=== PATIENT | female | born 1945 | race Caucasian/White ===

== ENCOUNTER → 2017-05-04 | Outpatient (CLI) | payer MEDICARE ==
[2017-05-04 18:37] LABS: Basophils % (A) 0 %; CH 28.5; CHCM 32.7; Eosinophils % (A) 0 %; HCT 43.3 % (34.0-46.0); HGB 14.7 gm/dL (11.4-16.0); Luc # (Auto) 0.13; Luc % (Auto) 3; Lymphocytes # (A) 1.1 k/uL (1.0-4.8); Lymphocytes % (A) 23 %; MCH 29.7 pg (25.0-35.0); MCHC 33.9 g/dL (31.0-37.0); MCV 87.6 fL (80.0-100.0); Mean Platelet Volume 8.9; Monocytes # (A) 0.3 k/uL (0-1.0); Monocytes % (A) 6 %; Neutrophils # (A) 3.1 k/uL (1.3-7.7); Neutrophils % (A) 67 %; RBC 4.94 m/uL (3.80-5.40); RDW 13.9 % (11.5-15.5); WBC 4.7 k/uL (3.8-10.6); WBC (Perox) 4.97
[2017-05-04 18:47] LABS: ALT 42 U/L (9-52); AST 36 U/L (14-36); Alkaline Phosphatase 63 U/L (38-126); Anion Gap 13 mmol/L; Blood Urea Nitrogen 20 mg/dL (7-17); Calcium 9.9 mg/dL (8.4-10.2); Carbon Dioxide 25 mmol/L (22-30); Chloride 103 mmol/L (98-107); Cholesterol 166 mg/dL (<200); Glucose 86 mg/dL (74-99); HDL Cholesterol 73 mg/dL (40-60); Non-African American GFR(MDRD) >60 (>60 ml/min/1.73 sqM); Potassium 3.9 mmol/L (3.5-5.1); Sodium 141 mmol/L (137-145); Total Bilirubin 0.7 mg/dL (0.2-1.3); Triglycerides 63 mg/dL (<150)
== END | disposition home or self-care (01) ==
LOC: MMGSC 12:05
PROVIDERS: ATTEND Family Medicine
DX: I10 Essential (primary) hypertension (principal); E78.5 Hyperlipidemia, unspecified
CPT/HCPCS: 36415; 80053; 80061; 84439; 84443; 85025; 87086

== ENCOUNTER → 2017-06-20 | Outpatient (CLI) | payer MEDICARE ==
--- NOTE | 2017-06-21 11:47 | MM ---
Reason for exam: screening (asymptomatic). Last mammogram was performed 1 year ago. History: Patient is postmenopausal and has history of breast cancer at age 42. Family history of breast cancer in 2 daughters. Mastectomy of the right breast, 1986. Reconstruction of the left breast. Physical Findings: A clinical breast exam by your physician is recommended on an annual basis and results should be correlated with mammographic findings. MG 3D Scr Mauricio Unilateral W/Cad Bilateral CC and MLO view(s) were taken. Prior study comparison: June 17, 2016, left breast mammogram, performed at [facility]. June 17, 2015, bilateral mammogram, performed at [facility]. There are scattered fibroglandular densities. There is chronic nodularity in the left breast. No significant changes when compared with prior studies. ASSESSMENT: Benign, BI-RAD 2 RECOMMENDATION: Routine screening mammogram of the left breast in 1 year.
== END | disposition home or self-care (01) ==
LOC: RADMAMWWP 10:35
PROVIDERS: ATTEND Family Medicine
DX: Z12.31 Encounter for screening mammogram for malignant neoplasm of breast (principal); Z90.11 Acquired absence of right breast and nipple; Z85.3 Personal history of malignant neoplasm of breast
CPT/HCPCS: 77063; G0202

== ENCOUNTER → 2018-06-21 | Outpatient (CLI) | payer MEDICARE ==
--- NOTE | 2018-06-22 14:15 | MM ---
Reason for exam: screening (asymptomatic). Last mammogram was performed 1 year ago. History: Patient is postmenopausal and has history of breast cancer at age 42. Family history of breast cancer in 2 daughters. Mastectomy of the right breast, 1986. Reconstruction of the left breast. Physical Findings: A clinical breast exam by your physician is recommended on an annual basis and results should be correlated with mammographic findings. MG 3D Scr Mauricio Unilateral W/Cad Bilateral CC and MLO view(s) were taken. Prior study comparison: June 20, 2017, bilateral MG 3d scr mauricio unilateral w/cad. June 17, 2016, left breast mammogram, performed at [facility]. There are scattered fibroglandular densities. No significant changes when compared with prior studies. ASSESSMENT: Benign, BI-RAD 2 RECOMMENDATION: Routine screening mammogram of the left breast in 1 year.
== END | disposition home or self-care (01) ==
LOC: RADMAMWWP 10:26
PROVIDERS: ATTEND Family Medicine
DX: Z12.31 Encounter for screening mammogram for malignant neoplasm of breast (principal); Z90.11 Acquired absence of right breast and nipple; Z98.82 Breast implant status
CPT/HCPCS: 77067

== ENCOUNTER → 2019-06-22 | Outpatient (CLI) | payer MEDICARE ==
--- NOTE | 2019-06-25 14:59 | MM ---
Reason for exam: screening (asymptomatic). Last mammogram was performed 1 year ago. History: Patient is postmenopausal and has history of breast cancer at age 42. Family history of breast cancer in 2 daughters. Mastectomy of the right breast, 1986. Reconstruction of the left breast. Physical Findings: A clinical breast exam by your physician is recommended on an annual basis and results should be correlated with mammographic findings. MG 3D Scr Mauricio Unilateral W/Cad Bilateral CC and MLO view(s) were taken. Prior study comparison: June 21, 2018, bilateral MG 3d scr mauricio unilateral w/cad. June 20, 2017, bilateral MG 3d scr mauricio unilateral w/cad. There are scattered fibroglandular densities. No significant changes when compared with prior studies. ASSESSMENT: Benign, BI-RAD 2 RECOMMENDATION: Routine screening mammogram of the left breast in 1 year.
== END | disposition home or self-care (01) ==
LOC: RADMAMWWP 11:25
PROVIDERS: ATTEND Family Medicine
DX: Z12.31 Encounter for screening mammogram for malignant neoplasm of breast (principal); Z85.3 Personal history of malignant neoplasm of breast; Z90.11 Acquired absence of right breast and nipple
CPT/HCPCS: 77067

== ENCOUNTER → 2019-07-24 | Outpatient (CLI) | payer MEDICARE ==
[2019-07-24 12:18] LABS: Potassium 3.8 mmol/L (3.5-5.1)
[2019-07-24 12:27] LABS: Basophils % (A) 1 %; Eosinophils % (A) 1 %; HCT 42.1 % (34.0-46.0); HGB 13.8 gm/dL (11.4-16.0); Lymphocytes # (A) 1.1 k/uL (1.0-4.8); Lymphocytes % (A) 23 %; MCH 28.5 pg (25.0-35.0); MCHC 32.9 g/dL (31.0-37.0); MCV 86.6 fL (80.0-100.0); Monocytes # (A) 0.3 k/uL (0-1.0); Monocytes % (A) 7 %; Neutrophils # (A) 3.2 k/uL (1.3-7.7); Neutrophils % (A) 66 %; Platelet Count 202 k/uL (150-450); Prothrombin Time 10.4 sec (9.0-12.0); RBC 4.86 m/uL (3.80-5.40); RDW 15.5 % (11.5-15.5); WBC 4.9 k/uL (3.8-10.6)
== END | disposition home or self-care (01) ==
LOC: LABPAT 11:18
PROVIDERS: ATTEND Orthopaedic Surgery
DX: Z01.812 Encounter for preprocedural laboratory examination (principal); Z01.818 Encounter for other preprocedural examination; M17.12 Unilateral primary osteoarthritis, left knee; Z79.01 Long term (current) use of anticoagulants
CPT/HCPCS: 36415; 80051; 85025; 85610; 87070; 93005

== ENCOUNTER 2019-08-07 10:01 | Day surgery (SDC) | payer MEDICARE ==
[2019-08-01 14:43] VITALS: BMI 33.8
--- NOTE | 2019-08-06 14:13 | HP ---
HISTORY AND PHYSICAL CHIEF COMPLAINT: Left knee pain. HISTORY OF PRESENT ILLNESS: The patient is a 74-year-old retired female who presents with progressive left knee pain after a previous injury while doing yoga. She notes persistent pain, swelling, and giving way. She has tried medications and an injection with only partial temporary relief. She notes the pain severely limits her normal function and activities. PAST MEDICAL HISTORY: Significant for breast cancer, hypertension, hypercholesterolemia. PAST SURGICAL HISTORY: Significant for mastectomy, hysterectomy, cardiac catheterization, and rectocele repair. CURRENT MEDICATIONS: Losartan, Ditropan, turmeric. She denies drug allergies. FAMILY HISTORY: Significant for cancer. SOCIAL HISTORY: Significant for occasional alcohol use. REVIEW OF SYSTEMS: A 16-point review of systems otherwise reviewed and is noncontributory. PHYSICAL EXAMINATION: On examination, the patient is approximately 5 foot, 285 pounds of endomorphic habitus. HEENT: Exam is nonfocal. NECK: Supple, she has painless passive motion of her left hip. Straight leg raise is negative. Active motion left knee -12 to 95 degrees of flexion. She has a large effusion. She is tender about the medial joint line. Collaterals are stable, Riya is negative, Sandra's elicits medial pain. She has genu varum alignment. Her distal neurovascular appears intact in the left lower extremity. Previous x-rays of the left knee obtained in the office show severe medial compartment osteoarthrosis. IMPRESSION: Left knee severe medial compartment osteoarthrosis. RECOMMENDATIONS: I talked to the patient at length regarding her condition along with treatment options. At this point, she is quite limited because of pain related to her osteoarthrosis despite a trial of conservative measures. After thorough discussion, she opts to proceed with surgery. We will plan to proceed with a left total knee arthroplasty. Risks and benefits were discussed at length in layman's terms. We will institute DVT prophylaxis postoperatively. The patient underwent preoperative medical evaluation by Dr. Boswell. MMAMMONL / MILADYN: [id number] /
[~2019-08-07 10:01] MED LIST: ACETAMINOPHEN TAB 500 MG TAB PO ONE; DEXAMETHASONE SOD PHOSPHATE 10 MG/ML 1 ML VIAL IV ONE; HYDROmorphone 0.5 MG/0.5 ML SYRINGE IVP PRN; MELOXICAM 7.5 MG TAB PO ONE; MIDAZOLAM 2 MG/2 ML VIAL IV PRN; ONDANSETRON 4 MG/2 ML VIAL IVP ONE; TRANEXAMIC ACID 1,000 MG in SODIUM CHLORIDE 0.9% 100 ML IVPB ONE
[2019-08-07] MEDS: LACTATED RINGERS 1,000 ML IV SCH (10:32)
[2019-08-07] MEDS ORDERED: LIDOCAINE 1% 20 ML VIAL (10MG/ML) FOR IV START INTRADERMA ONE (10:36)
[2019-08-07] MEDS ORDERED: ROPIVACAINE 246.25 MG, EPINEPHrine 0.5 MG, KETOROLAC 30 MG, cloNIDine HCL/PF 80 MCG, WA... MISCELLANE ONE ×5 (12:12)
[2019-08-07] MEDS ORDERED: TRANEXAMIC ACID 1,000 MG/10 ML VIAL ONE (12:34)
[2019-08-07] MEDS ORDERED: fentaNYL (PF) 50 MCG/ML 2 ML AMP ONE (12:34)
[2019-08-07] MEDS ORDERED: PROPOFOL 10 MG/ML 20 ML VIAL IV ONE (12:34)
[2019-08-07] MEDS ORDERED: SODIUM CHLORIDE 0.9% 100 ML BAG ONE (12:34)
[2019-08-07] MEDS ORDERED: MIDAZOLAM 2 MG/2 ML VIAL ONE (12:34)
[2019-08-07] MEDS ORDERED: ROPIVACAINE 0.2%-NS ON-Q PUMP 1,090 MG, EMPTY PAIN BALL 1 EACH MISCELLANE PRN (13:10)
--- NOTE | 2019-08-07 13:11 | P.ANPRN ---
Procedure Note - Anesthesia - Nerve Block Performed Left Adductor Canal Infusion Time Out Performed: Yes Date of Procedure: 08/07/19 Procedure Start Time: 11:24 Procedure Stop Time: 11:36 Location of Patient Procedure: PreOp Indication: Acute Post-Operative Pain, Requested by Surgeon Sedation Type: Sedate with meaningful contact maintained Preparation: Sterile Prep, Sterile Dressing Position: Supine Catheter: Indwelling Needle Types: Pajunk Needle Gauge: 18, 20 Ultrasound used to visualize needle placement: Yes Ultrasound used to observe medication spread: Yes Injectate: 0.5% Ropivacaine (see comment for volume) (20 ml) Blood Aspirated: No Pain Paresthesia on Injection Noted: No Resistance on Injection: Normal Image Stored and Saved: Yes Events: Uneventful and Well Tolerated
[2019-08-07] MEDS ORDERED: ceFAZolin 3,000 MG in SODIUM CHLORIDE 0.9% IRRIGATIO 3,000 ML IRRIGATION ONE (13:20)
[2019-08-07] MEDS ORDERED: HYDROmorphone 0.5 MG/0.5 ML SYRINGE IVP PRN (14:24)
[2019-08-07] MEDS ORDERED: ACETAMINOPHEN TAB 325 MG TAB PO PRN (14:24)
[2019-08-07] MEDS ORDERED: HYDROcodone/APAP 5-325MG 1 EACH TAB PO PRN (14:24)
[2019-08-07] MEDS ORDERED: NALOXONE 0.4 MG/ML 1 ML VIAL IV PRN (14:24)
[2019-08-07] MEDS ORDERED: MAGNESIUM HYDROXIDE 2,400 MG/10 ML CUP PO PRN (14:24)
[2019-08-07] MEDS ORDERED: ONDANSETRON 4 MG/2 ML VIAL IVP PRN (14:24)
[2019-08-07] MEDS ORDERED: traMADol 50 MG TAB PO PRN (14:24)
--- NOTE | 2019-08-07 14:51 | P.OP ---
Date of Procedure: 08/07/19 Preoperative Diagnosis: Left knee severe tricompartmental osteoarthrosissymptomatic Postoperative Diagnosis: Same Procedure(s) Performed: Left total knee arthroplastycementedcruciate retaining Implants: Depuy Attune size 6 neuro cemented femoral component, size 5 cemented tibial component, 9 mm articular surface, 32 mm cemented patellar component. Anesthesia: regional, local, spinal Surgeon: Gio Bradley Ophthalmic Medical Assistant #1: Kyrie Hough Estimated Blood Loss (ml): 50 Pathology: other (Bone fragments) Condition: stable Disposition: PACU Indications for Procedure: The patient's a 74-year-old female presents with progressive left knee pain secondary to osteoarthrosis despite conservative measures. A discussion of the risks and benefits of operative intervention versus continued conservative measures was made with patient. She opted to proceed with surgery. Operative risks to include infection, neurovascular injury, development of blood clots, possible component loosening, possible component failure need for subsequent procedures was discussed. Informed consent was obtained. Operative Findings: As below Description of Procedure: The patient was brought to the operating room, and after induction of spinal anesthesia the left lower extremity was prepped and draped in a normal fashion. The tourniquet was inflated to 270 mmHg. A longitudinal incision extending 3 finger breaths above the superior pole of the patella extending to the medial aspect the tibial tubercle was then made. The skin and subcutaneous tissues were divided sharply. Electrocautery was used for hemostasis. A medial parapatellar arthrotomy was then performed. The medial soft tissues to include the superficial and deep portions of the medial collateral ligament as well as the medial hamstring tendons were elevated subperiosteally. The proximal medial tibia osteophytes were carefully removed. The patella was everted. The knee was flexed. A portion of the retropatellar fat pad was excised sharply. The anterior cruciate ligament was sacrificed. A starting hole was made in the distal femur 1 cm anterior to the posterior cruciate origin. An intramedullary femoral guide was gently inserted planning on 5 valgus distal cut with 9 mm distal resection. The cutting block was pinned in place. The distal cut was then made. The posterior referencing sizing guide was utilized. 3 of external rotation was built into the system and verified off the trans- epicondylar axis and the posterior condyles. I felt size 6 was most appropriate. The cutting block was pinned in place. The anterior, posterior, and chamfer cuts were then made. The bone fragments were removed. A sulcus cut was then made with the appropriate guide. The trial size 6 femoral component was then placed and was fully seated. There was good anterior to posterior and medial to lateral fit. The distal peg holes were then drilled. The trial component was then removed. Attention was then paid towards preparing the proximal tibia. An extra medullary guide was utilized in line with the tibial shaft and second metatarsal distally. A 7 posterior slope was planned. I planned on 2 mm resection from the medial compartment. The cutting block was pinned in place. The proximal tibial cut was then made. The bone was removed in one fragment. The remnants of the medial and lateral menisci were excised the capsule junction with electrocautery. The tibia sized most appropriately at size 5. The posterior osteophytes off the distal femur were carefully removed with a curved osteotome. The trial tibial and femoral components were placed along with a 9 millimeters articular surface. I was able to obtain full flexion and extension with good stability with varus and valgus stress. After several flexion and extension cycles, the tibial rotation was marked with electrocautery in line with the medial one third of the tibial tubercle. Attention was then paid towards preparing the patella. A patella reamer was utilized taking this down to 14 mm of bone stock. A good flush cut was made. The patella sized most appropriately at 32 millimeters. The peg holes were then drilled. The trial component was placed. The knee was taken through a range of motion. I had good patellofemoral tracking with no hands technique. The trial components were then removed. The tibia was prepared in the appropriate rotation with appropriate drill and keel punch. The flexion and extension gaps were checked and felt to be symmetric. The posterior soft tissues were injected with ropivacaine. The bony surfaces were prepared with pulsatile lavage and dried. The deep tibial component was then cemented in place and was fully seated. Excess cement was removed. The femoral component was cemented in place and was fully seated. Again excess cement was removed. The trial 9 millimeters surface was then inserted in the knee was put in full extension. The patella component was c emented in place. After the cement had sufficiently hardened, the knee was again taken through a range of motion. Again there was good stability in flexion and extension with varus and valgus stress. The trial articular surface was then removed. The final articular surface was placed and was impacted. Care was taken to avoid any soft tissue interposition. Pulsatile lavage was again utilized. The tourniquet was deflated with approximately 70 minutes total tourniquet time. There was minimal drainage therefore a deep drain was not placed. The medial parapatellar arthrotomy was then closed with #2 Ethibond suture. The subcutaneous tissues were reapproximated interrupted 2-0 Vicryl sutures. The skin was reapproximated with 3-0 subarticular strata fix suture. Skin tape and adhesive was applied. A sterile dressing was applied. The patient was then awoken from sedation and transferred to recovery room in good condition. Blood loss was estimated at 50 milliliters. No complications were incurred. Sponge and needle counts were correct at the end the case. Vu LOVE assisted during the major components this case to include exposure, bone resection, and implantation.
--- NOTE | 2019-08-07 15:12 | XR ---
EXAMINATION TYPE: XR knee limited LT DATE OF EXAM: 08/07/2019 CLINICAL HISTORY: Left knee pain and arthritis status post total knee replacement. TECHNIQUE: Portable AP and crosstable lateral views of the left knee are obtained immediately postop eratively. COMPARISON: None FINDINGS: Metallic hardware from total left knee arthroplasty is seen and appears satisfactory in al ignment and position. There is evidence of recent surgery with diffuse subcutaneous gas and soft tis aren swelling noted. IMPRESSION: METALLIC HARDWARE FROM TOTAL LEFT KNEE ARTHROPLASTY IS SATISFACTORY IN ALIGNMENT.
[2019-08-07] MEDS: HYDROcodone/APAP 5-325MG 1 EACH TAB PO PRN ×2 (16:48→22:09)
--- NOTE | 2019-08-07 20:10 | P.CONS ---
History of Present Illness - Reason for Consult Consult date: 08/07/19 Medical management of hypertension Requesting physician: Gio Bradley - Chief Complaint Consult for medical management of hypertension - History of Present Illness The patient is a 74-year-old female who is admitted to the primary orthopedic service under Dr. Bradley and is postop day #0 status post left total knee arthroplasty secondary to severe left knee tricompartmental osteoarthrosis that apparently failed conservative therapy. The patient reports her pain is currently well controlled, she denies any chest pain or shortness of breath, she denies nausea vomiting. She is able to wiggle her toes and reports that she's been up and back ambulatory with a walker to the restroom without any significant difficulty. The patient currently has her left adductor canal infusion per anesthesia going, review of the records indicates her blood pressure is elevated and the patient reported not taking her antihypertensive regimen this morning. She is continued on perioperative antibiotics with cefazolin. Review of Systems Pertinent positives per HPI all other review of systems was negative Past Medical History Past Medical History: Cancer, Hypertension Additional Past Medical History / Comment(s): rt breast ca, urinary incontinence History of Any Multi-Drug Resistant Organisms: None Reported Past Surgical History: Breast Surgery, Hysterectomy Additional Past Surgical History / Comment(s): rt mastectomy approx 1988 Past Anesthesia/Blood Transfusion Reactions: Postoperative Nausea & Vomiting (PONV) Past Psychological History: No Psychological Hx Reported Smoking Status: Never smoker Past Alcohol Use History: Occasional Additional Drug Use History / Comment(s): has used CBD oil and topical cream, instructed to hold 24 hrs prior to procedure - Past Family History Mother Family Medical History: Cancer Daughter(s) Family Medical History: Cancer Additional Family Medical History / Comment(s): x3 Brother(s) Family Medical History: Cancer Sister(s) Family Medical History: Cancer Medications and Allergies Home Medications Medication Instructions Recorded Confirmed Type Losartan/Hydrochlorothiazide 1 tab PO DAILY 08/01/19 08/07/19 History [Losartan-Hctz 100-25 mg Tab] Oxybutynin Chloride [Ditropan] 5 mg PO BID 08/01/19 08/07/19 History Allergies Allergy/AdvReac Type Severity Reaction Status Date / Time No Known Allergies Allergy Verified 08/07/19 10:27 Physical Exam Vitals: Vital Signs Temp Pulse Resp BP Pulse Ox 08/07/19 17:00 94 155/72 92 L 08/07/19 16:45 76 159/86 93 L 08/07/19 16:30 78 155/84 96 08/07/19 16:15 75 150/81 92 L 08/07/19 16:00 97.5 F L 84 138/83 89 L 08/07/19 15:30 16 114/55 92 L 08/07/19 15:15 59 L 16 143/66 93 L 08/07/19 15:00 54 L 16 142/60 93 L 08/07/19 14:50 96.8 F L 65 12 129/65 92 L 08/07/19 10:30 97.8 F 64 16 204/91 96 Intake and Output 08/07/19 08/07/19 08/07/19 06:59 14:59 22:59 Intake Total 751 240 Output Total 50 Balance 701 240 Intake: IV 751 Oral 240 Output: Estimated Blood Loss 50 Other: Weight 85 kg Constitutional: No acute distress, conversant, pleasant Eyes: Anicteric sclerae, moist conjunctiva, no lid-lag, PERRLA ENMT: NC/AT,Oropharynx clear, no erythema, exudates Neck:Supple, FROM, no masses, or JVD, No carotid bruits; No thyromegaly Lungs: Clear to auscultation, Clear to percussion, Normal respiratory effort, no accessory muscle use Cardiovascular: Heart regular in rate and rhythm, No murmurs, gallops, or rubs no peripheral edema Abdominal: Soft Nontender, nom distended, no guarding, no rebound or rigidity, Normoactive bowel sounds No hepatomegaly, No splenomegaly, No palpable mass No abdominal wall hernia noted Skin: Normal temperature, tone, texture, turgor, No induration No subcutaneous nodules, No rash, lesions, No ulcers Extremities:No digital cyanosis No clubbing, Pedal pulses intact and symmetrical Radial pulses intact and symmetrical Normal gait and station, No calf tenderness Psychiatric: Alert and oriented to person, place and time, Appropriate affect Intact judgement Neuro: Muscles Strength 5/5 in all 4 extremities, Sensation to light touch grossly present throughout, Cranial nerves II-XII grossly intact. No focal sensory deficits Assessment and Plan (1) Essential hypertension Current Visit: Yes Status: Acute Code(s): I10 - ESSENTIAL (PRIMARY) HYPERT ENSION SNOMED Code(s): 65647688 (2) Osteoarthritis of left knee Current Visit: Yes Status: Acute Code(s): M17.12 - UNILATERAL PRIMARY OSTEOARTHRITIS, LEFT KNEE SNOMED Code(s): 903404214440627 (3) History of arthroplasty of left knee Current Visit: Yes Status: Acute Code(s): Z96.652 - PRESENCE OF LEFT ARTIFICIAL KNEE JOINT SNOMED Code(s): 353555204 Plan: The patient is admitted to the primary orthopedic service under Dr. Zaidi will defer all related perioperative pain management to primary team. The patient is scheduled to undergo physical therapy evaluation in the morning and apparently is doing pretty well at this time. Medically the patient's blood pressure is elevated as she did not take her blood pressure medication today we'll restart in the morning. Anticipate discharge next 1-2 days. We'll continue to follow with you We appreciate the opportunity to be involved in the patient's ongoing care. For further questions please not hesitate to contact us on inpatient team
[2019-08-07] MEDS ORDERED: SENNOSIDES-DOCUSATE SODIUM 1 EACH TAB PO SCH (21:00)
[2019-08-08] MEDS: LACTATED RINGERS 1,000 ML IV SCH (05:18)
[2019-08-08] MEDS: HYDROcodone/APAP 5-325MG 1 EACH TAB PO PRN ×2 (06:22→12:03)
[2019-08-08 07:23] VITALS: BP 109/62; PULSE 67; RESP 16; TEMP 98.3
[2019-08-08 08:02] LABS: Basophils % (A) 0 %; Eosinophils % (A) 0 %; HCT 35.4 % (34.0-46.0); HGB 11.4 gm/dL (11.4-16.0); Lymphocytes % (A) 15 %; MCH 28.6 pg (25.0-35.0); MCHC 32.2 g/dL (31.0-37.0); MCV 88.9 fL (80.0-100.0); Mean Platelet Volume 6.6; Monocytes # (A) 0.4 k/uL (0-1.0); Monocytes % (A) 6 %; Neutrophils # (A) 5.5 k/uL (1.3-7.7); Neutrophils % (A) 78 %; Platelet Count 206 k/uL (150-450); RBC 3.99 m/uL (3.80-5.40); RDW 13.7 % (11.5-15.5)
--- NOTE | 2019-08-08 08:18 | P.PN ---
Progress Note - Text Progress Note Date: 08/08/19 Patient is without complaints. Denies pain. Denies leg weakness. VSS Left adductor catheter site clean and dry A/P POD#1 s/p L TKA - doing well
[2019-08-08] MEDS ORDERED: LOSARTAN-HCTZ 50-12.5 MG 1 EACH TAB PO SCH (09:00)
[2019-08-08] MEDS ORDERED: RIVAROXABAN 10 MG TAB PO SCH (09:00)
--- NOTE | 2019-08-08 10:36 | P.PN ---
Subjective Progress Note Date: 08/08/19 Principal diagnosis: Status post left total knee arthroplasty Patient evaluated at bedside, her is present. She was resting comfortably, pain is well-controlled. Denies any chest pain or shortness of breath. Objective - Vital Signs Vital signs: Vital Signs Temp 98.3 F 08/08/19 07:00 Pulse 67 08/08/19 07:00 Resp 16 08/08/19 07:00 BP 109/62 08/08/19 07:00 Pulse Ox 95 08/08/19 07:00 Intake & Output 08/07/19 08/08/19 08/08/19 18:59 06:59 18:59 Intake Total 751 720 Output Total 50 200 Balance 701 520 Weight 85 kg Intake: IV 751 Oral 720 Output: Urine 200 Estimated Blood Loss 50 Other: Voiding Method Toilet # Voids 1 - Exam Left lower extremity: Incision is clean, dry, and intact. The exofin fusion tape is in good condition. There is minimal soft tissue swelling and ecchymosis surrounding the medial and lateral aspects of the incision. Calf is soft, no tenderness with palpation. Plantar flexion, dorsiflexion, EHL, FHL are intact. Sensory exam to light touch throughout the extremity is intact, dorsal pedis pulses 2+. - Labs CBC & Chem 7: 08/08/19 07:32 Assessment and Plan Plan: Assessment: Postop day #1 status post left total knee arthroplasty Plan: Pain control, oral medication and discharge GI and DVT prophylaxis, Eliquis 2.5mg bid for 2 weeks Wound care instructions discussed Home physical therapy and nursing is to discharge Medical recommendations Discharge home today Time with Patient: Less than 30
--- NOTE | 2019-08-08 10:38 | P.DS ---
Providers Date of admission: 08/07/2019 Expected date of discharge: 08/08/19 Attending physician: Gio Bradley Consults: 08/07/19 14:24 Consult Physician Routine Consulting Provider: Emma Mcdonald Reason/Comments: medical management Do you want consulting provider notified?: Yes Primary care physician: Emma Mcdonald Hospital Course: Date of admission: 08/07/2019 Date of discharge: 08/08/2019 Admission diagnosis: Status post left total knee arthroplasty Discharge diagnosis: Same Attending physician: Dr. Bradley Surgical procedures: Left total knee arthroplasty Brief history: Patient is a 74-year-old female with a history of progressive primary left knee osteoarthritis. At this point patient has failed conservative treatment measures and has opted to proceed with a elective left total knee arthroplasty. Hospital course: Details of patient's surgery can be found in operative report. Patient tolerated the procedure well and was subsequently transported to orthopedic floor. Patient's orthopeidc and medical care was provided daily. Patient had daily laboratory tests performed for evaluation of overall blood counts. Patient had daily physical therapy to include strengthening range of motion as well as education with walker ambulation. Patient had daily CPM usage as part of their physical therapy program. Patient was treated with Xarelto for their postoperative DVT prophylaxis during their inpatient stay. Patient was noted to have a relatively uneventful postoperative course. Patient reported satisfactory pain control with oral pain medications by postoperative day 0. Patient showed satisfactory progress with physical therapy. Patient moved steadily through the program and had no difficulty meeting the goals by postoperative day 1. Given patient's otherwise satisfactory course and having met physical therapy goals, plan is to discharge patient home on postoperative day 1. Discharge condition/disposition: Patient will be discharged home in stable condition. Discharge medications: Instructions are given on resumption of patient's normal daily medications per primary care recommendation, in addition patient will be prescribed Mcnary 5 mg/325 mg, Eliquis 2.5mg. Discharge instructions: 1. Wound care and infection precautions, keep incision dry and covered while showering, no lotions, creams, moisturizers. No soaking, tubs, pools, hottubs. Do not scrub over the incision. 2. Weight-bear as tolerated with walker / cane until follow-up. 3. Ice and elevate when necessary. Do not exceed 20 minutes per hour with ice pack. 4. Utilize compression sleeve until seen at first follow up appointment. 5. Visiting nursing care. 6. Home physical therapy including home CPM. 7. Pain meds and anticoagulants per prescription. 8. Pain medication has potential to cause constipation. Increase oral fluid and fiber intake. Contact primary care provider if you have not had a bowel movement within 48 hours after discharge 9. No anti-inflammatory medication until discussed at first post operative visit, this including Motrin, Aleve, Mobic, Diclofenac. 10. Follow up in office at 2 weeks postop with Vu Hough PA-C 11. Follow up with your primary care doctor 7-10 days after discharge. 12. Contact [facility] with any questions, . Procedures: Left total knee arthroplasty Patient Condition at Discharge: Good Plan - Discharge Summary Discharge Rx Participant: Yes New Discharge Prescriptions: New Apixaban [Eliquis] 2.5 mg PO BID #60 tab Hydrocodone/Acetaminophen [Mcnary 5-325] 1 - 2 each PO Q6HR PRN #56 tab PRN Reason: Pain Continue Oxybutynin Chloride [Ditropan] 5 mg PO BID Losartan/Hydrochlorothiazide [Losartan-Hctz 100-25 mg Tab] 1 tab PO DAILY Discharge Medication List Losartan/Hydrochlorothiazide [Losartan-Hctz 100-25 mg Tab] 1 tab PO DAILY 08/01/19 [History] Oxybutynin Chloride [Ditropan] 5 mg PO BID 08/01/19 [History] Apixaban [Eliquis] 2.5 mg PO BID #60 tab 08/08/19 [Rx] Hydrocodone/Acetaminophen [Mcnary 5-325] 1 - 2 each PO Q6HR PRN #56 tab 08/08/19 [Rx] Follow up Appointment(s)/Referral(s): [facility] [NON-STAFF] - As Needed (continuous passive motion knee machine) [facility], [NON-STAFF] - As Needed Kyrie Hough PAC [PHYSICIAN INSERTING PRESS OPERATOR] - 2 Weeks Activity/Diet/Wound Care/Special Instructions: Orthopedic Discharge Instructions: 1. Wound care and infection precautions, keep incision dry and covered while showering, no lotions, creams, moisturizers. No soaking, pools, hot tubs. Do not scrub over incision. 2. Weight-bear as tolerated with walker / cane until follow-up. 3. Ice and elevate when necessary. Do not exceed 20 minutes per hour with ice pack. 4. Utilize compression sleeve until seen at first follow up appointment. 5. Pain meds and anticoagulants per prescription. 6. Pain medication has potential to cause constipation. Increase oral fluid and fiber intake. Contact primary care provider if you have not had a bowel movement within 48 hours after discharge. 7. No anti-inflammatory medication until discussed at first post operative visit, this including Motrin, Aleve, Mobic, Diclofenac. 8. Follow up in office at 2 weeks postop with Vu Hough PA-C 9. Follow up with your primary care doctor 7-10 days after discharge. 10. Contact [facility] with any questions, . Discharge Disposition: HOME WITH HOME HEALTH SERVICES
--- NOTE | 2019-08-08 16:48 | P.PN ---
Subjective Progress Note Date: 08/08/19 (delayed charting seen at 0830) Principal diagnosis: knee pain Patient is a 74-year-old female past medical history of breast cancer treated in 1988, hypertension, and urinary incontinence presented for elective left total knee arthroplasty. She underwent surgery with Dr. Bradley on 08/07 without any immediate postoperative complications. On the morning after surgery she was already up and ambulating. Pain was controlled and she was feeling well. Patient seen and examined at bedside. She denies chest pain, shortness breath, nausea, vomiting, or diarrhea. She is concerned as to whether or not home to come to her fifth wheel trailer. I'm sure that as long as they had a reliable location home care would come out. She states she typically goes to [place] in the winter. She follows with Dr. Mcdonald had a [place] and plans to continue to do so. Objective - Vital Signs Vital signs: Vital Signs Temp 98.3 F 08/08/19 07:00 Pulse 67 08/08/19 07:00 Resp 16 08/08/19 07:00 BP 109/62 08/08/19 07:00 Pulse Ox 95 08/08/19 07:00 Intake & Output 08/07/19 08/08/19 08/08/19 18:59 06:59 18:59 Intake Total 751 720 Output Total 50 200 Balance 701 520 Weight 85 kg Intake: IV 751 Oral 720 Output: Urine 200 Estimated Blood Loss 50 Other: Voiding Method Toilet # Voids 1 - Exam General: non toxic, no distress, appears at stated age Derm: Dressing in place over left knee, no swelling warm, dry Head: atraumatic, normocephalic, symmetric Eyes: EOMI, no lid lag, anicteric sclera Mouth: no lip lesion, mucus membranes moist Cardiovascular: S1S2 reg, no murmur, positive posterior tibial pulse bilateral, Lungs: CTA bilateral, no rhonchi, no rales , no accessory muscle use Abdominal: soft, nontender to palpation, no guarding, no appreciable organomegaly Ext: no gross muscle atrophy, no edema, no contractures Neuro: CN II-XI grossly intact, no focal neuro deficits Psych: Alert, oriented, appropriate affect - Labs CBC & Chem 7: 08/08/19 07:32 Assessment and Plan Assessment: Patient is a 74-year-old female here for elective left total knee arthroplasty. Urinary incontinence -Continue with ditropan Hypertension, controlled -Resume home losartan/hydrochlorothiazide Medically stable for discharge at the discretion of ortho
== END 2019-08-08 13:03 | disposition home health service (06) ==
LOC: OR 10:01 → 4SSUR 14:22 → OR 08-08 13:03
PROVIDERS: ATTEND Orthopaedic Surgery
DX: M17.12 Unilateral primary osteoarthritis, left knee (principal); M25.762 Osteophyte, left knee; I10 Essential (primary) hypertension; E78.00 Pure hypercholesterolemia, unspecified; E78.5 Hyperlipidemia, unspecified; R32 Unspecified urinary incontinence; Z90.11 Acquired absence of right breast and nipple; Z85.3 Personal history of malignant neoplasm of breast; Z90.710 Acquired absence of both cervix and uterus; Z79.899 Other long term (current) drug therapy
CPT/HCPCS: 27447; 97161; 64448; 76942; 85025; 88300; 73560; C1713; C1776; J2250; J0171; J1100; J0690 ×3; J2405; J3010; J1885; J2795 ×2; J2704; J0735

== ENCOUNTER → 2020-08-04 | Outpatient (CLI) | payer MEDICARE ==
--- NOTE | 2020-08-05 12:05 | MM ---
Reason for exam: screening (asymptomatic). Last mammogram was performed 1 year and 1 month ago. History: Patient is postmenopausal and has history of breast cancer at age 42. Family history of breast cancer in 2 daughters. Mastectomy of the right breast, 1986. Reconstruction of the left breast. Physical Findings: A clinical breast exam by your physician is recommended on an annual basis and results should be correlated with mammographic findings. MG 3D Scr Mauricio Unilateral W/Cad CC and MLO view(s) were taken of the left breast. Prior study comparison: June 22, 2019, bilateral MG 3d scr mauricio unilateral w/cad. June 21, 2018, bilateral MG 3d scr mauricio unilateral w/cad. The breast tissue is heterogeneously dense. This may lower the sensitivity of mammography. There are benign appearing round calcifications in the left breast. There is chronic nodularity in the left axilla. There is no new dominant lesion. ASSESSMENT: Benign, BI-RAD 2 RECOMMENDATION: Routine screening mammogram of the left breast in 1 year.
== END | disposition home or self-care (01) ==
LOC: RADMAMWWP 13:45
PROVIDERS: ATTEND Family Medicine
DX: Z12.31 Encounter for screening mammogram for malignant neoplasm of breast (principal); Z85.3 Personal history of malignant neoplasm of breast
CPT/HCPCS: 77067